=== PATIENT | male | born 1965 | race Caucasian/White ===

== ENCOUNTER 2021-01-17 05:15 | Emergency (ER) | payer BC ==
[~2021-01-17] VITALS: Ht 182.9 cm; Wt 95.2 kg
[2021-01-17] MEDS ORDERED: ZOFRAN4 MG PO (07:29)
[2021-01-17] MEDS ORDERED: HYDROCODON-ACE1 EA10 PO (07:29)
== END 2021-01-17 08:01 | disposition home or self-care (01) ==
LOC: ED 05:15
DX: U07.1 COVID-19 (principal)
CPT/HCPCS: 71045; 80053; 80500; 83605; 85025; 96374; 96375; 99284-25; C9803; J1170; J2405; U0003

== ENCOUNTER 2023-07-14 12:59 | Day surgery (SDC) | payer BC ==
[~2023-07-14] VITALS: Ht 182.9 cm; Wt 93.0 kg
[~2023-07-14 12:59] MED LIST: HYDROCODON-ACE1 EA10 PO; IBLOOD GLUCOSE TEST STRIP 1 EA TEST VI PRN; LACTATED RINGER'S 1,000 ML IV SCH; LIDOCAINE HCL 1% 5 ML SDV INJ ONE; LIDOCAINE HCL 4% 50 ML BTL TOP SCH; MIDAZOLAM HCL 5 MG/5 ML VIAL IV PRN; ZOFRAN4 MG PO; fentaNYL citrate 100 MCG/2 ML VIAL IV PRN
[2023-07-14 13:20] VITALS: BP 119/74
[2023-07-14] MEDS ORDERED: fentaNYL citrate 100 MCG/2 ML VIAL ONE (14:10)
[2023-07-14] MEDS ORDERED: MIDAZOLAM HCL 5 MG/5 ML VIAL ONE (14:10)
--- NOTE | 2023-07-14 15:43 | NUR ---
07/14/23 1543 Dorota Roman 1532- PT PRESENTS TO PACU, LEFT LATERAL SEMI WHALEY POSITION. ABD SOFT, NON DISTENDED. PT PASSING LARGE AMOUNTS OF GAS, ENCOURAGED TO CONTINUE. PT REACTIVE TO STIMULI, OPENS EYES BUT UNABLE TO FOCUS. PT DENIES PAIN AND NAUSEA. FALLS BACK TO SLEEP EASILY. ALL MONITORS IN PLACE. O2 AT 3L PER NC, LR CONTINUES TO INFUSE IN RH IV. 1540- PT WAKES EASILY TO VERBAL STIMULI, OPENS EYES INTERMITTENTLY ON OWN. SATS REMAIN 98-99% ON 3L PER NC. MOVED TO ROOM AIR AT THIS TIME. PT CONTINUES TO PASS GAS.
--- NOTE | 2023-07-15 07:47 | OR ---
[facility] [address] [place], [place] [address] Signed DATE OF OPERATION: 07/14/2023 SURGEON: Adam Bustamante MD PREOPERATIVE DIAGNOSES: 1. Colon screening. 2. Gastroesophageal reflux. POSTOPERATIVE DIAGNOSES: 1. Small hiatal hernia with distal esophagitis, duodenitis and mild gastritis. 2. Large pedunculated polyp at 20-25 cm and small polyp at rectosigmoid. 3. Diverticulosis. PROCEDURES: 1. Esophagogastroduodenoscopy with biopsy. 2. Total colonoscopy to cecum with hot snare polypectomy x1 and cold morcellation polypectomy x1. ANESTHESIA: Intravenous sedation; fentanyl 200 mcg and Versed 9 mg. INDICATION: This 57-year-old white man was referred initially for colon screening. He has no symptoms of bleeding, diarrhea or constipation and no family history of colon cancer. Additionally, he was noted to have gastroesophageal reflux for which he has occasional dysphagia. He has never had upper endoscopy and currently takes no medication for heartburn or reflux. He is admitted at this time to undergo upper endoscopy and colonoscopy. He understands the risk of bleeding, infection, and perforation. FINDINGS: Upper endoscopy was notable for a small hiatal hernia and distal esophagitis, but without sign of stricture proper. There was mild Schatzki's ring. There were a few gastric polyps which appeared benign. There was mild antral gastritis and small hiatal hernia on retroflexed view. The duodenum did have inflammatory change consistent with duodenitis. CLOtest was negative 30 minutes post procedure. On colonoscopy, the prep was quite good. Complete colonoscopy was undertaken of the cecum. He had numerous diverticula of the left colon and sigmoid. There was a relatively large pedunculated polyp at 20-25 cm which was excised completely with hot Electronically Signed By: ADAM BUSTAMANTE MD 07/15/23 0747 PATIENT NAME: BRIAN FARAH JR OPERATIVE REPORT DATE OF : 69 REPORT #: [id number] PHYSICIAN: ADAM BUSTAMANTE MD PCP: HUMZA HARRISON MD REPORT IS CONFIDENTIAL AND NOT TO BE RELEASED WITHOUT AUTHORIZATION [facility] [address], [place] [address] Signed snare polypectomy technique without complication. There was a small polyp of the rectosigmoid also excised with cold morcellation technique. DESCRIPTION OF PROCEDURE: The patient was brought to the endoscopy suite and placed in the lateral decubitus position. He underwent topical Hurricaine hypopharyngeal anesthesia. With full cardiopulmonary monitoring, he was given intravenous sedation to the point of slurred speech and nystagmus. A bite block was placed. An Olympus video upper endoscope was passed in the hypopharynx. The vocal cords appeared normal. Scope was advanced to the esophagus without problem, throughout its length it was reasonably normal except in the distal portion where there was mild chronic inflammatory change and a minimal Schatzki's ring. The scope was passed to the stomach which was insufflated with air. Rugal folds appeared normal. The antrum had mild chronic inflammation. The pylorus was normal. Scope was passed through into the duodenum, which was normal initially. The 3rd and 2nd portions were quite normal. Scope was manipulated to the 3rd portion where biopsies were obtained to assess for celiac disease. The scope was withdrawn and in the bulbar portion, erythematous changes consistent with chronic duodenitis were noted. Biopsies were obtained as well. The scope was withdrawn to the antrum and biopsies taken there where chronic inflammatory change was noted. A single gastric polyp was noted this was excised as well. Retroflexed view was undertaken showing a small hiatal hernia. Scope was straightened withdrawn and biopsies then taken of distal esophageal mucosa. There was no evidence of Michel's epithelium proper. Mid esophagus was biopsied as well as there was a concentric ring appearance at that time. Recall he had no complaints of dysphagia preoperatively. The scope was further withdrawn and removed. Plans were then made for colonoscopy. Additional sedation was given. Digital rectal examination was normal other than some internal hemorrhoids. The Olympus video colonoscope was passed in the rectum and manipulated into the sigmoid where numerous diverticula were seen. A relatively large and hypervascular pedunculated polyp was noted. This was left in situ until later in the case. The scope was ultimately advanced to the cecum. The ileocecal valve and appendiceal orifice were normal. The scope was withdrawn from that point and examination showed no sign of abnormality other than the diverticula of the sigmoid and left colon. At 20 to 25 cm from the anal verge, the broad-based with a pedunculated polyp was noted. It appeared to have three heads on the stem. Using hot snare polypectomy technique, this polyp was excised completely. A three-prong grasper was used to extract the polyp was offloaded. Scope was reintroduced and examination showed ultimately the stump of the amputated polyp to be hemostatic and at optimal length. The scope was once again withdrawn demonstrating diverticula. At the rectosigmoid, there was a small polyp, this was excised with cold morcellation technique. Retroflexed view of the rectum confirmed some internal hemorrhoidal changes, Electronically Signed By: ADAM BUSTAMANTE MD 07/15/23 0747 PATIENT NAME: JERIMAXWELLBRIAN JR OPERATIVE REPORT DATE OF : 69 REPORT #: [id number] PHYSICIAN: ADAM BUSTAMANTE MD PCP: HUMZA HARRISON MD REPORT IS CONFIDENTIAL AND NOT TO BE RELEASED WITHOUT AUTHORIZATION [facility] [address] [place] [address] Signed but otherwise normal. Scope was removed and the patient was taken to the recovery room in good condition. CONCLUDING DIAGNOSES: 1. Hiatal hernia with distal esophagitis, antral gastritis, and duodenitis of the bulb. 2. Diverticulosis of the colon with two polyps, one of them large, pedunculated (excised). PLAN: We will prescribe PPI medication 20 mg Prilosec daily and see the patient back in the office in 4 to 6 weeks and review pathology reports and plan of treatment going forward regarding reflux. MD TONA Lala/CORALL /[id number] cc: Humza Harrison MD Copies: HUMZA HARRISON MD ~ Electronically Signed By: ADAM BUSTAMANTE MD 07/15/23 0747 PATIENT NAME: BRIAN FARAHIS OPERATIVE REPORT DATE OF : 69 REPORT #: [id number] PHYSICIAN: ADAM BUSTAMANTE MD PCP: HUMZA HARRISON MD REPORT IS CONFIDENTIAL AND NOT TO BE RELEASED WITHOUT AUTHORIZATION
--- NOTE | 2023-07-18 13:22 | PATH ---
[facility] [address] [place], [place] [address] Signed SPECIMEN(S): A DUODENAL BIOPSY SPECIMEN(S): B DUODENAL BULB BIOPSY SPECIMEN(S): C ANTRUM BIOPSY SPECIMEN(S): D STOMACH POLYP SPECIMEN(S): E DISTAL LOWER ESOPHAGEAL BIOPSY SPECIMEN(S): F MIDDLE ESOPHAGEAL BIOPSY SPECIMEN(S): G COLON POLYP, 20 CM SPECIMEN(S): H RECTOSIGMOID POLYP SPECIMEN SOURCE: A. DUODENAL BIOPSY B. DUODENAL BULB BIOPSY C. ANTRUM BIOPSY D. STOMACH POLYP E. DISTAL LOWER ESOPHAGEAL BIOPSY F. MIDDLE ESOPHAGEAL BIOPSY G. COLON POLYP, 20 CM H. RECTOSIGMOID POLYP CLINICAL HISTORY: GERD, screening colonoscopy. Small hiatal hernia, gastritis, mild esophagitis, polyps x 2, diverticulosis, internal/external hemorrhoids FINAL PATHOLOGIC DIAGNOSIS: A. Duodenum, biopsy: - Duodenal mucosa with focal peptic injury B. Duodenum, bulb, biopsy: - Duodenal mucosa with no significant pathologic changes C. Stomach, antrum, biopsy: - Gastric antral mucosa with no significant pathologic changes - Negative for Helicobacter pylori with HE stains D. Stomach, polypectomy: - Fundic gland polyp E. Esophagus, distal lower, biopsy: - Esophageal squamous mucosa with reactive epithelial changes and rare intraepithelial eosinophils (up to 10 eosinophils per high-power field) F. Esophagus, middle, biopsy: - Esophageal squamous mucosa with reactive epithelial changes and rare intraepithelial eosinophils (up to 5 eosinophils per high-power field) G. Colon, 20 cm, polypectomy: - Tubulovillous adenoma PATIENT NAME: BRIAN FARAH JR PATHOLOGY DATE OF : 69 REPORT #: [id number] PHYSICIAN: DAYAMI JEFFERS PCP: HUMZA DUBON MD REPORT IS CONFIDENTIAL AND NOT TO BE RELEASED WITHOUT AUTHORIZATION [facility] [address] [place], [place] [address] Signed H. Colon, rectosigmoid, polypectomy: - Colonic mucosa with no significant pathologic changes COMMENT: For parts E and F, these findings favor severe reflux esophagitis over eosinophilic esophagitis, though correlation with clinical and endoscopic information is needed. [facility] MICROSCOPIC EXAMINATION: Histologic sections of all submitted blocks are examined by light microscopy. These findings, together with the gross examination, support the pathologic diagnosis. GROSS DESCRIPTION: A. The specimen, labeled and designated "Shelbierer, duodenum biopsy," is received in formalin and consists of two bey soft tissue fragments, ranging from 0.2 cm. Entirely submitted in (A1). B. The specimen, labeled and designated "Shelbierer, duodenal bulb biopsy," is received in formalin and consists of two bey soft tissue fragments, ranging from 0.2 cm. Entirely submitted in (B1). C. The specimen, labeled and designated "Shelbierer, antrum biopsy," is received in formalin and consists of one bey soft tissue fragment, 0.3 cm. Entirely submitted in (C1). D. The specimen, labeled and designated "Shelbierer, stomach polyp," is received in formalin and consists of one bey soft tissue fragment, 0.2 cm. Entirely submitted in (D1). E. The specimen, labeled and designated "Henderer, lower esophagus biopsy," is received in formalin and consists of three bey soft tissue fragments, ranging from 0.3 cm. Entirely submitted in (E1). F. The specimen, labeled and designated "Klarissa, middle esophagus biopsy," is received in formalin and consists of two bey soft tissue fragments, ranging from 0.1-0.5 cm. Entirely submitted in (F1). G. The specimen, labeled and designated "Klarissa, colon polyp at 20 cm," is received in formalin and consists of one bey soft tissue fragment, 1.4 cm. The specimen shows white stalk that measure 0.4 cm in diameter. The stalk is inked and specimen is sectioned. Specimen is entirely submitted in (G1). H. The specimen, labeled and designated "Klarissa, rectum polyp," is received in formalin and consists of two bey soft tissue fragments, ranging from 0.1-0.2 cm. Entirely submitted in (H1). PATIENT NAME: BRIAN FARAH JR PATHOLOGY DATE OF : 69 REPORT #: [id number] PHYSICIAN: DAYAMI JEFFERS PCP: HUMZA DUBON MD REPORT IS CONFIDENTIAL AND NOT TO BE RELEASED WITHOUT AUTHORIZATION [address] [address] Signed JS (under the direct supervision of a pathologist) The Gross Description was prepared using a voice recognition system. The report was reviewed for accuracy; however, sound-alike word errors, addition and/or deletions may occur. If there is any question about this report, please contact Client Services. ADDITIONAL NOTES: Immunohistochemical and/or in situ hybridization studies if performed in this case included appropriate positive controls that reacted as expected. This test was developed and its performance characteristics determined by [facility]. It has not been cleared or approved by the U.S. Food and Drug Administration. The FDA has determined that such clearance or approval is not necessary. This test is used for clinical purposes. It should not be regarded as investigational or for research. [facility] is certified under the Clinical Laboratory Improvement Amendments of 1988 (CLIA) as qualified to perform high complexity clinical laboratory testing. PERFORMING LABORATORY: Technical component was performed by [facility], [address] [place] [id number] (CLIA# [id number]). Professional interpretation was performed by [facility] - [address] [address] [id number] Diagnostician: Froy Gray MD Pathologist Electronically Signed 07/18/2023 Copies: ~ PATIENT NAME: BRIAN FARAH PATHOLOGY DATE OF : 69 REPORT #: [id number] PHYSICIAN: DAYAMI JEFFERS PCP: HUMZA DUBON MD REPORT IS CONFIDENTIAL AND NOT TO BE RELEASED WITHOUT AUTHORIZATION
== END 2023-07-14 16:20 | disposition home or self-care (01) ==
LOC: DS 12:59 → OPS 12:59 → DS 14:00 → OPS 16:20
PROVIDERS: ATTEND Surgery
PROC: 0DB98ZX Excision of Duodenum, Via Natural or Artificial Opening Endoscopic, Diagnostic (ICD-10-PCS; 2023-07-14)
PROC: 0DB68ZX Excision of Stomach, Via Natural or Artificial Opening Endoscopic, Diagnostic (ICD-10-PCS; 2023-07-14)
PROC: 0DB58ZX Excision of Esophagus, Via Natural or Artificial Opening Endoscopic, Diagnostic (ICD-10-PCS; 2023-07-14)
PROC: 0DBN8ZX Excision of Sigmoid Colon, Via Natural or Artificial Opening Endoscopic, Diagnostic (ICD-10-PCS; principal; 2023-07-14 14:00)
PROC: 0DBE8ZX Excision of Large Intestine, Via Natural or Artificial Opening Endoscopic, Diagnostic (ICD-10-PCS; 2023-07-14 14:00)
DX: Z12.11 Encounter for screening for malignant neoplasm of colon (principal); D12.6 Benign neoplasm of colon, unspecified; K63.5 Polyp of colon; K57.30 Diverticulosis of large intestine without perforation or abscess without bleeding; K31.7 Polyp of stomach and duodenum; K21.00 Gastro-esophageal reflux disease with esophagitis, without bleeding; K22.2 Esophageal obstruction; K44.9 Diaphragmatic hernia without obstruction or gangrene; K29.70 Gastritis, unspecified, without bleeding; K29.80 Duodenitis without bleeding; R01.1 Cardiac murmur, unspecified; Z87.440 Personal history of urinary (tract) infections; Z80.42 Family history of malignant neoplasm of prostate
CPT/HCPCS: 99153; G0500; J2250; J3010; J7121

== ENCOUNTER 2024-11-25 20:54 | Emergency (ER) | payer BC ==
[~2024-11-25] VITALS: Ht 182.9 cm; Wt 88.4 kg
[~2024-11-25 20:54] MED LIST changes: -IBLOOD GLUCOSE TEST STRIP 1 EA TEST VI PRN; -LACTATED RINGER'S 1,000 ML IV SCH; -LIDOCAINE HCL 1% 5 ML SDV INJ ONE; -LIDOCAINE HCL 4% 50 ML BTL TOP SCH; -MIDAZOLAM HCL 5 MG/5 ML VIAL IV PRN; -fentaNYL citrate 100 MCG/2 ML VIAL IV PRN
[2024-11-25 21:27] LABS: BILIRUBIN, URINE POSITIVE (negative); BLOOD/HGB, URINE LARGE (Negative); KETONE, URINE NEGATIVE (Negative); LEUK ESTERASE, URINE NEGATIVE (negative); NITRITE, URINE NEGATIVE (negative); PH, URINE 5.5 (5-7)
[2024-11-25 21:36] LABS: BASOPHILS 0.4 % (0.2-1.2); EOSINOPHILS 6.2 % (0.8-7.0); HEMATOCRIT 29.7 % (40.1-51.0); HEMOGLOBIN 9.7 g/dL (13.7-17.5); LYMPHOCYTES 19.8 % (21.8-53.1); MCH 29.2 PG (25.7-32.2); MCHC 32.7 g/dL (32.3-36.5); MCV 89.5 fL (79.0-92.2); MONOCYTES 7.6 % (5.3-12.2); NEUTROPHILS 65.5 % (34.0-67.9); PLATELET COUNT 411 K/uL (163-337); RBC 3.32 M/uL (4.63-6.08)
[2024-11-25 21:49] LABS: BACTERIA, URINE RARE /hpf (negative); CASTS, URINE NONE SEEN \\lpf; COLLECTION TYPE, URINE CLEAN CATCH; CRYSTALS, URINE NONE SEEN (0-1+); EPITHELIAL CELLS, URINE NONE SEEN /lpf (0-1+); RED BLOOD CELLS, URINE 21-40 /hpf (0-5); REFLEX CULTURE, URINE No (No)
[2024-11-25 21:53] LABS: ALBUMIN/GLOBULIN RATIO 0.83 (1.1-2.4); ANION GAP 11.1 (7-21); BILIRUBIN, TOTAL 0.3 mg/dL (0.2-1.0); BUN/CREATININE RATIO 15.57 (6.0-28.6); CALCIUM 9.6 mg/dL (8.5-10.1); CREATININE, SERUM 1.22 mg/dL (0.70-1.30); POTASSIUM 4.1 mmol/L (3.5-5.1); PROTEIN, TOTAL 6.6 g/dL (6.4-8.2)
[2024-11-25 22:07] LABS: INR 1.86 (0.80-1.30); PROTIME 20.6 Sec (11.2-14.2)
[2024-11-25 22:28] VITALS: BP 125/81
== END 2024-11-25 22:41 | disposition home or self-care (01) ==
LOC: ED 20:54
PROVIDERS: Family Medicine
DX: R31.9 Hematuria, unspecified (principal); Z91.018 Allergy to other foods; Z91.040 Latex allergy status
CPT/HCPCS: 36415; 80053; 81001; 85025; 85610; 99283

== ENCOUNTER 2025-05-14 08:12 | Day surgery (SDC) | payer BC ==
--- NOTE | 2025-05-12 08:10 | NUR ---
CASE CANCELED PER DR STAHL, PT NOTIFIED
[~2025-05-14] VITALS: Ht 182.9 cm; Wt 90.0 kg
[2025-05-14] VITALS (9 sets, daily range): BP systolic 95–112; BP diastolic 57–76
[~2025-05-14 08:12] MED LIST changes: +ASPIRIN500 MG PO; +ATORVASTATIN CA40 MG PO; +CEFAZOLIN SODIUM 2 GM in SODIUM CHLORIDE 0.9% 100 ML IV SCH; +IBLOOD GLUCOSE TEST STRIP 1 EA TEST VI PRN; +LACTATED RINGER'S 1,000 ML IV SCH; +LIDOCAINE HCL 1% 5 ML SDV INJ ONE; +MIDODRINE HCL5 MG PO; +PACERONE400 MG PO; +PAIN RELIEVER500 M1 PO; +PRILOSEC OTC20 MG PO; +SULFAMETHOXAZO1 EAC1 PO; +TAMSULOSIN HCL0.4 MG PO; +TORSEMIDE20 MG PO; +TRAMADOL HCL50 MG PO; +WARFARIN SODIUM3 MG PO; +WARFARIN SODIUM6 MG PO
[2025-05-14] MEDS ORDERED: LACTATED RINGER'S 1,000 ML IV SCH (11:00)
[2025-05-14] MEDS ORDERED: OXYCODONE/APAP 5/325 TAB PO PRN (11:00)
[2025-05-14] MEDS ORDERED: HYDROmorphone HCL 1 MG/ML SYR IV PRN ×2 (11:00→11:15)
[2025-05-14] MEDS ORDERED: fentaNYL citrate 50 MCG/ML SDV IV PRN (11:15)
[2025-05-14] MEDS ORDERED: NALOXONE HCL 0.4 MG SYR IV PRN (11:15)
[2025-05-14] MEDS ORDERED: IBLOOD GLUCOSE TEST STRIP 1 EA TEST VI PRN (11:15)
[2025-05-14] MEDS ORDERED: FAMOTIDINE 20 MG/ 2 ML VIAL IV SCH (12:00)
[2025-05-14] MEDS ORDERED: SEVOFLURANE 250 ML BTL INH ONE (12:54)
--- NOTE | 2025-05-14 13:23 | NUR ---
05/14/25 1323 Whitley Hernandez 1301 PT ARRIVED IN PACU NON RESPONSIVE TO NOXIOUS STIMULI WITH OPA IN PLACE. MEJIA WITH CBI RUNNING. EMPTIED 400ML OF PALE PINK URINE/IRRIGATION FROM MEJIA BAG. 1317 PT REACTIVE. OPA REMOVED. 1323 PT AWAKENS, THEN FALLS BACK TO SLEEP.
--- NOTE | 2025-05-14 14:20 | NUR ---
RECEIVED VERBAL REPORT FROM DEVI KNAPP. PATIENT BROUGHT VIA BED FROM OR. VISITOR AT BEDSIDE. THIS RN AND DEVI GLASS REMAIN IN ROOM.
--- NOTE | 2025-05-14 15:00 | NUR ---
PATIENT OREINTED TO ROOM, AT BEDSIDE. PATIENT REQUESTED SOUP, BROTH AND CRACKERS BROUGHT IN BY DEVI GLASS. PATIENT STATED HIS PAIN HAD DECREASED TO 5/10. CPOX AT BEDSIDE, 98% RA. ASSESSMENT COMPLETED AND DOCUMENTED. PATIENT AWAKE AND ALERT, ABLE TO ANSWER QUESTIONS APPROPRIATELY. CBI DRAINING WITHOUT DIFFICULTY TO MEJIA BAG BELOW WAIST, LIGHT PINK, CLEAR. IVF INFUSING WITHOUT DIFFICULTY. PATIENT DENIES NEEDS AT THIS TIME. CALL LIGHT IN REACH.
[2025-05-14] MEDS ORDERED: MULTI VITAMIN1 EACH PO (15:28)
--- NOTE | 2025-05-14 15:29 | NUR ---
MED REC COMPLETE
--- NOTE | 2025-05-14 15:33 | NUR ---
PATIENTS HOURLY VS OBTAINED AND DOCUMENTED. PATIENT AWAKE AND ALERT, STATED HIS PAIN IS A 5/10. GIVEN MENU AND INFORMATION ON ORDERING DINNER. NO OTHER NEEDS AT THIS TIME. CALL LIGHT IN REACH.
--- NOTE | 2025-05-14 16:29 | NUR ---
VS OBTAINED AND DOCUMETNED. PATIENT LAYING IN BED, AWAKE AND ALERT, AT BEDSIDE. CBI DRAINING WITHOUT DIFFICULTY TO MEJIA BELOW WAIST, WATERMELON COLOR, CLEAR. PATIENT DENIES NEEDS AT THIS TIME. CALL LIGHT IN REACH.
--- NOTE | 2025-05-14 18:18 | NUR ---
MEJIA BAG EMPTIED AND RECORDED FROM CBI. CLEAR WATERMELON COLOR, DRAINING WITHOUT DIFFICULTY. PATINET AWAKE AND ALERT LAYING IN BED NO COMPLAINTS OF PAIN OR DISCOMFORT WATCHING TV, PATINET DENIES NEEDS AT THIS TIME. CALL LIGHT IN REACH.
--- NOTE | 2025-05-14 18:47 | NUR ---
NEW BAG OF IRRIGATION FLUID STARTED AT THIS TIME. URINE REMAINS WATERMELON COLORED. INTAKE AND OUTPUT DOCUMENTED IN THE CHART AT THIS TIME. PATIENT EDUCATED ON HOW TO COMPLETE ARGENIS AND MEJIA CATHETER CARE AT THIS TIME. PATIENT EXPRESSED UNDERSTANDING. WIPES PROVIDED. PATIENT STATED NO FURTHER NEEDS AT THIS TIME. CALL LIGHT AND PERSONAL BELONGINGS ARE WITHIN REACH. PATIENT SIGNIFICANT OTHER IS SITTING IN THE RECLINER AT BEDSIDE.
--- NOTE | 2025-05-14 19:40 | NUR ---
RECEIVED REPORT FROM JUAN ANTONIO/MARIA LUISA RN'S. PT RESTING IN BED W/ FAMILY AT BEDSIDE. CBI DRIP RATE MODERATE, UO PINK LEMONADE COLORED. PT INQUIRING ABOUT PO PAIN MED, DECLINES OFFER OF IV PAIN MED AT THIS TIME.
--- NOTE | 2025-05-14 20:15 | NUR ---
PT RESTING IN BED W/ FAMILY AT BEDSIDE. OX4. REPORTS PAIN TO URETHRA 5/10-MEDICATED W/ PRN PERCOCET PER EMAR. LSC. ON RA. CPOX IN PLACE. HRR. BTA. CBI RUNNING AT SLOW DRIP RATE, RATE SLIGHTLY INCREASED R/T FRUIT PUNCH COLORED OUTPUT. UO NOW PINK. PT IS VERY TENDER AT CATHETER SITE. RH IV INFUSING LR, IV SITE WNL. SCD'S IN PLACE TO BLE. CALL LIGHT WITHIN REACH.
--- NOTE | 2025-05-14 21:33 | NUR ---
PT RESTING IN BED, FAMILY MEMBER LEAVING. CBI RATE INCREASED AGAIN R/T CRANBERRY COLORED UO. UO NOW PINK LEMONADE. DENIES ANY OTHER NEEDS AT THIS TIME.
--- NOTE | 2025-05-14 22:36 | NUR ---
CBI OUTPUT PINK LEMONADE. PT REPORTS PAIN TOLERABLE AT THIS TIME. PT AWAKE, ON HIS IPAD.
--- NOTE | 2025-05-14 23:42 | NUR ---
erickson bag emptied-uo light cranberry, no clots. pt still awake, playing on ipad.
--- NOTE | 2025-05-15 00:51 | NUR ---
PT AWAKE. CBI FLOW RATE SLOWED UO IS LIGHT PINK. NO CLOTS NOTED.
[2025-05-15 02:07] VITALS: BP 106/64
[2025-05-15 02:16] VITALS: BP 106/64
--- NOTE | 2025-05-15 02:16 | NUR ---
PT AWAKE, FAMILY IN ROOM. LEARNING DISABILITIES RESOURCE TEACHER OBTAINED VS-STABLE. CBI DRIP RATE SLOWED, UO PALE YELLOW.
[2025-05-15 05:47] VITALS: BP 100/54
--- NOTE | 2025-05-15 06:03 | NUR ---
CBI CLAMPED AT THIS TIME. UO PALE YELLOW.
[2025-05-15 06:05] VITALS: BP 100/54
--- NOTE | 2025-05-15 06:57 | NUR ---
Pt report received from DEVI Palmer. Pt is resting supine in bed. Eyes closed, breathing is regular even, and non labored.
[2025-05-15] MEDS ORDERED: LEVOFLOXACIN500 MG PO (07:54)
[2025-05-15] MEDS ORDERED: OXYCODONE HCL5 M3 PO (07:55)
[2025-05-15 08:38] VITALS: BP 123/76
[2025-05-15 08:44] VITALS: BP 123/76
--- NOTE | 2025-05-16 13:54 | EKG ---
[facility] [place] [facility] [address] [facility] [place] [address] Signed Sinus rhythm with occasional premature ventricular complexes Otherwise normal ECG No previous ECGs available Confirmed by Joel Peña DO ([id number]) on 05/16/2025 1:54:23 PM Electronically Signed By: JOEL PEÑA DO 05/16/25 1354 PATIENT NAME: NGUYENLilianaBRIAN JR Electrocardiogram DATE OF : 69 PHYSICIAN: JOEL PEÑA DO REPORT #: [id number] REPORT IS CONFIDENTIAL AND NOT TO BE RELEASED WITHOUT AUTHORIZATION
== END 2025-05-15 08:45 | disposition home or self-care (01) ==
LOC: DS 08:12 → MS 14:07 → DS 05-15 08:45
PROVIDERS: ATTEND Urology
PROC: 0V508ZZ Destruction of Prostate, Via Natural or Artificial Opening Endoscopic (ICD-10-PCS; principal; 2025-05-14 09:10)
DX: N40.1 Benign prostatic hyperplasia with lower urinary tract symptoms (principal); R33.9 Retention of urine, unspecified; I10 Essential (primary) hypertension; E78.5 Hyperlipidemia, unspecified; K21.9 Gastro-esophageal reflux disease without esophagitis; Z91.018 Allergy to other foods; Z91.0110 Allergy to milk products, unspecified; Z91.014 Allergy to mammalian meats
CPT/HCPCS: 00914; 51700; 93005; 93010; 96360; 96361; 96374; 96375; C1713; C1769; J0688; J0696; J1171; J3010; J7121